=== PATIENT | female | born 2000 | race African-American/Black ===

== ENCOUNTER 2019-04-26 18:43 | Emergency (ER) | payer MEDICAID ==
[~2019-04-26] VITALS: Ht 172.7 cm; Wt 70.0 kg
[2019-04-26] MEDS ORDERED: SODIUM CHLORIDE 0.9% 1,000 ML IV ONE (23:07)
[2019-04-26 23:49] LABS: CHLORIDE 109 mEq/L (98-107)
[2019-04-26 23:50] LABS: EOSINOPHILS % 3.1 % (0.0-5.0); HEMATOCRIT. 29.2 % (36.0-48.0); HEMOGLOBIN. 9.2 g/dL (12.0-16.0); MEAN CORPUSCULAR HEMOGLOBIN 21.8 pg (28.0-32.0); MEAN CORPUSCULAR VOLUME 69.1 fL (81.0-99.0); MEAN PLATELET VOLUME 8.2 fl (7.4-10.4); MONOCYTES % 9.6 % (2.0-8.0); NEUTROPHILS % 59.3 % (40.0-76.0); PLATELET 334 x1000/uL (130-400); RED BLOOD CELL COUNT 4.22 mill/uL (4.2-5.4); RED CELL DISTRIBUTION WIDTH 18.8 % (11.6-14.6)
[2019-04-26 23:55] LABS: PLATELET ESTIMATE NORMAL
[2019-04-27 01:49] VITALS: BP 109/66
== END 2019-04-27 01:50 | disposition home or self-care (01) ==
LOC: ER 18:43
DX: D64.9 Anemia, unspecified (principal); F41.9 Anxiety disorder, unspecified; R07.89 Other chest pain
CPT/HCPCS: 36415; 71045; 80053; 81025; 84484; 85025; 93005; 99284; J7030

== ENCOUNTER 2019-05-12 11:06 | Emergency (ER) | payer SELFPAY ==
[~2019-05-12] VITALS: Ht 162.6 cm; Wt 48.0 kg
[2019-05-12] MEDS ORDERED: KETOROLAC 60MG/2ML VIAL IM STA (11:22)
[2019-05-12 12:16] LABS: CLARITY URINE CLEAR (CLEAR); COLOR URINE YELLOW (YELLOW); KETONES URINE NEGATIVE (NEGATIVE); LEUKOCYTE ESTERASE URINE NEGATIVE (NEGATIVE); NITRITE URINE NEGATIVE (NEGATIVE); OCCULT BLOOD URINE NEGATIVE (NEGATIVE); PH URINE 6.5 (4.5-8.0); PROTEIN URINE 2+ (NEGATIVE); SPECIFIC GRAVITY URINE 1.024 (1.005-1.030)
[2019-05-12 13:24] VITALS: BP 125/77
== END 2019-05-12 13:32 | disposition home or self-care (01) ==
LOC: ER 11:06
DX: S30.1XXA Contusion of abdominal wall, initial encounter (principal); S20.219A Contusion of unspecified front wall of thorax, initial encounter; F41.9 Anxiety disorder, unspecified; F32.9 Major depressive disorder, single episode, unspecified; V49.9XXA Car occupant (driver) (passenger) injured in unspecified traffic accident, initial encounter; Y93.89 Activity, other specified; Y92.89 Other specified places as the place of occurrence of the external cause; Y99.8 Other external cause status
CPT/HCPCS: 71045; 81003; 81025; 96372; 99283; J1885